=== PATIENT | female | born 1945 | race Caucasian/White ===

== ENCOUNTER 2025-05-23 11:19 | Emergency (ER) | payer MEDICARE, BC, SELFPAY ==
[2025-05-23 11:27] VITALS: BP 159/91
[2025-05-23 11:46] VITALS: BMI 20.3
[2025-05-23 12:19] LABS: Hematocrit 42.5 % (37.0-47.0); Hemoglobin 14.7 g/dL (12.0-16.0); Mean Corp Hgb Conc. 34.6 g/dL (33.0-37.0); Mean Corpuscular Volume 90.2 fL (81.0-99.0); Nucleated Red Blood Cells % 0 %; Platelet Count 226 10^3/uL (130-400); Red Cell Dist. Width 12.0 % (11.5-14.5)
[2025-05-23 12:31] LABS: ALT (SGPT) 17 U/L (0-35); AST (SGOT) 26 U/L (14-36); Albumin 4.6 g/dl (3.5-5.0); Alkaline Phosphatase 122 U/L (38-126); Blood Urea Nitrogen 14 mg/dl (7-17); Calcium 9.4 mg/dl (8.4-10.2); Carbon Dioxide 27 mmol/L (22-30); Chloride 95 mmol/L (98-107); Estimated Creatinine Clearance 51 ml/min; Glucose 99 mg/dl (70-99); Lipase 195 U/L (23-300); Potassium 3.6 mmol/L (3.5-5.1); Sodium 131 mmol/L (135-145); Total Protein 7.4 g/dl (6.3-8.2); eGFR > 60.00
[2025-05-23] MEDS: OMNIPAQUE 50 ML PO (12:45)
[2025-05-23] MEDS: NSS 1000 IV (12:46)
--- NOTE | 2025-05-23 13:43 | ED.GENMED ---
History of Present Illness
<Kayden Velez Jr., PA-C - Last Filed: 05/24/25 10:57>
General
Chief Complaint: Abdominal Pain
Source: patient
Exam Limitations: none
Time Seen by Provider: 05/23/25 11:45
Nursing documentation reviewed up to this point in time: agreed with
History of Present Illness
History of Present Illness:
79-year-old female past ministry of hypertension presenting to the emergency department today with concerns of decreased bowel movements over the past 2 weeks. She was seen 1 week ago in [place] where she lives and had a CT scan that showed an
ileus she was told to take MiraLAX and magnesium citrate which she did try at home without any resolution and has had worsening symptoms of the past few days. She has had ongoing nausea no vomiting. She denies any history of surgery or bowel
obstructions in the past. No bowel movements over the past few days. Denies any chest pain shortness of breath or fevers.
Review of Systems
<Kayden Velez Jr., PA-C - Last Filed: 05/24/25 10:57>
Review of Systems
Allergies reviewed?: Yes
All Other Systems: ROS reviewed and negative except as documented in HPI and ROS
Phy Exam
<Kayden Velez Jr., PA-C - Last Filed: 05/24/25 10:57>
Physical Exam
Physical Exam:
GENERAL: Alert , in no apparent distress
EYE: pupils equal and reactive
NECK: Supple, no significant adenopathy.
ENT: o/p clr, mmm.
CARDIAC: Regular rate and rhythm .
LUNGS: Clear breath sounds bilaterally, no acute respiratory distress, no wheezes/rales/rhonchi
ABDOMEN: Vague diffuse abdominal pain.
NEUROLOGICAL: Alert and oriented, no focal neuro deficits
SKIN: Warm and dry, skin intact.
MUSCULOSKELETAL: No edema, well perfused.
PSYCH: Normal and appropriate interaction.
Course
<Kayden Velez Jr., ISMAEL - Last Filed: 05/24/25 10:57>
Orders/Labs/Results
Orders:
Orders
05/23/25 11:54
Complete Blood Count/With Diff Urgent
Comprehensive Metabolic Panel Urgent
Lipase Urgent
05/23/25 12:29
CT Abd/pel W Iv And Oral Contr Urgent
Comment:
Reason For Exam: diffuse abd pain
Iohexol [Omnipaque] See Protocol PO NOW STA
05/23/25 12:30
0.9% Sodium Chloride 1000 ml [Nss] 1,000 ml IV BOLUS
05/23/25 12:48
Lactic Acid Urgent
05/23/25 15:49
Magnesium Citrate [Citroma] 300 ml PO ONCE ONE
Abnormal Lab Results
05/23/25
11:54
MCH 31.2 H pg
(27.0-31.0)
Absolute Lymphs (auto) 0.6 L 10^3/uL
(1.2-3.4)
Neutrophils % 82.8 H %
(42.2-75.2)
Lymphocytes % 8.5 L %
(20.5-51.1)
Sodium 131 L mmol/L
(135-145)
Chloride 95 L mmol/L
(98-107)
05/23/25 11:54
05/23/25 11:54
Vital Signs
Initial and Last Documented VS:
Initial Vital Signs
Temp Pulse Resp BP Pulse Ox
97.5 F 99 20 159/91 70
05/23/25 11:27 05/23/25 11:27 05/23/25 11:27 05/23/25 11:27 05/23/25 11:27
Last Documented Vital Signs
Temp Pulse Resp BP Pulse Ox
97.5 F 68 16 125/98 98
05/23/25 11:27 05/23/25 15:54 05/23/25 15:54 05/23/25 15:54 05/23/25 15:54
<Beth Goddard, HAULAGE ENGINE OPERATOR - Last Filed: 05/23/25 22:23>
Orders/Labs/Results
Orders:
Orders
05/23/25 11:54
Complete Blood Count/With Diff Urgent
Comprehensive Metabolic Panel Urgent
Lipase Urgent
05/23/25 12:29
CT Abd/pel W Iv And Oral Contr Urgent
Comment:
Reason For Exam: diffuse abd pain
Iohexol [Omnipaque] See Protocol PO NOW STA
05/23/25 12:30
0.9% Sodium Chloride 1000 ml [Nss] 1,000 ml IV BOLUS
05/23/25 12:48
Lactic Acid Urgent
05/23/25 15:49
Magnesium Citrate [Citroma] 300 ml PO ONCE ONE
Abnormal Lab Results
05/23/25
11:54
MCH 31.2 H pg
(27.0-31.0)
Absolute Lymphs (auto) 0.6 L 10^3/uL
(1.2-3.4)
Neutrophils % 82.8 H %
(42.2-75.2)
Lymphocytes % 8.5 L %
(20.5-51.1)
Sodium 131 L mmol/L
(135-145)
Chloride 95 L mmol/L
(98-107)
05/23/25 11:54
05/23/25 11:54
Vital Signs
Initial and Last Documented VS:
Initial Vital Signs
Temp Pulse Resp BP Pulse Ox
97.5 F 99 20 159/91 70
05/23/25 11:27 05/23/25 11:27 05/23/25 11:27 05/23/25 11:27 05/23/25 11:27
Last Documented Vital Signs
Temp Pulse Resp BP Pulse Ox
97.5 F 68 16 125/98 98
05/23/25 11:27 05/23/25 15:54 05/23/25 15:54 05/23/25 15:54 05/23/25 15:54
<Kayden Velez Jr., PA-C - Last Filed: 05/24/25 10:57>
MDM/Problems Addressed
MDM/Problems Addressed:
79-year-old female presenting to the emergency department today with concerns of ongoing constipation abdominal pain over the past 2 weeks. Diagnosed with an ileus last week at a hospital in [place]. On arrival mildly tachycardic but otherwise
vital signs are normal. Labs showing slightly low sodium level otherwise labs unremarkable. Plan for repeated CT scan for further assessment.
<Beth Goddard NP - Last Filed: 05/23/25 22:23>
MDM/Problems Addressed
MDM/Problems Addressed:
79-year-old female presenting to the emergency department today with concerns of ongoing constipation abdominal pain over the past 2 weeks. Diagnosed with an ileus last week at a hospital in [place]. On arrival mildly tachycardic but otherwise
vital signs are normal. Labs showing slightly low sodium level otherwise labs unremarkable. Plan for repeated CT scan for further assessment.
CT abd/pelvis radiology report read: IMPRESSION:
Extensive colonic stool burden without evidence of obstruction which likely represents constipation.
Mild colonic diverticulosis.
Mild circumferential wall thickening along the distal esophagus which can be seen with mild esophagitis.
Osteopenia. Compression deformity of the T12 vertebral body as well as a mild inferior end plate deformity of the L3 vertebral body which are likely chronic.
Pt very concerned 'what if I don't go' 'would a suppository help'
Rectal exam: no stool in rectal vault, no indication for enema or suppository
Pt provided a copy of report. She is aware of the compression fx's.
Reassured no ileus or obstruction at this time
Reviewed constipation instructions with her, Mag Tato provided
All questions answered.
Return instructions reviewed
<Kayden Velez Jr., PA-C - Last Filed: 05/24/25 10:57>
*Pulse Oximetry
SaO2: 70
Oxygen Mode of Delivery: Room air
<Beth Goddard HAULAGE ENGINE OPERATOR - Last Filed: 05/23/25 22:23>
*Pulse Oximetry
Patient hypoxic: not evaluated
*Critical Care Note
Total Time (30-74mins, 75-104mins- exclusive of procedures): Not Applicable
ED Attending Note
<Kayden Velez Jr., PA-C - Last Filed: 05/24/25 10:57>
-
Portions of this chart may have been created with voice recognition software.� Occasional wrong word or��sound alike� substitutions may have occurred due to the inherent limitations of voice recognition software.
Discharge Plan
Departure
Patient Disposition: Home (Routine Discharge)
Date of Disposition: 05/23/25
Time of Disposition: 15:51
Patient with high blood pressure during this ER visit?: No
Condition: Good
Discharge Problem:
Constipation
Instructions: Constipation, Adult (DC)
Referrals:
NONE,* [Family Provider, Internal Medicine]
Activity Restrictions/Additional Instructions:
As we discussed, your CAT scan shows large amount of stool throughout the colon. No sign of obstruction, ileus or anything worrisome.
Continue Miralax, the maximum daily dose every day for the next week or until your bowels move.
Take the bottle of Mag Citrate when you get home.
Warm prune juice may help. Drink at least 8 eight ounce glasses of water/liquid daily.
Return here immediately for: vomiting more than once in one hour, worsening abdominal pain, fever, feeling sicker in any way
Interventions
Interventions:
*General Assessment Last Done: 05/23/25 11:27
*Neglect/Abuse Screening Last Done: 05/23/25 11:27
[facility] Risk Assessment Tool Last Done: 05/23/25 12:07
*Risk Screen - Suicide (C-SSRS) Last Done: 05/23/25 12:59
*Nursing Disposition Last Done: 05/23/25 15:59
JW-Beaalr-Xibrjfqaga Assessment Last Done: 05/23/25 11:47
Discharge Date and Time
Discharge Date/Time: 05/23/25 16:11
Print Language: MEXICAN
[2025-05-23] MEDS: CITROMA 300 ML PO (15:51)
[2025-05-23 15:54] VITALS: BP 125/98
== END 2025-05-23 16:11 | disposition home or self-care (01) ==
LOC: EMR 11:19
PROVIDERS: Physician Assistant; EMERGENCY PHYSICIAN Emergency Medicine
DX: K59.00 Constipation, unspecified (principal); I10 Essential (primary) hypertension; M85.80 Other specified disorders of bone density and structure, unspecified site; M48.54XA Collapsed vertebra, not elsewhere classified, thoracic region, initial encounter for fracture
CPT/HCPCS: 99284; 96360; 74177; 80053; 83605; 83690; 85025; Q9967